=== PATIENT | female | born 1995 | race Caucasian/White ===

== ENCOUNTER 2017-05-04 14:50 | Inpatient (IN) | payer OTHER ==
[2017-05-04] VITALS (20 sets, daily range): BP systolic 127–175; BP diastolic 75–127
[~2017-05-04] VITALS: Ht 154.9 cm; Wt 62.3 kg
[2017-05-04 16:20] LABS: BASOPHIL (%) 0.3 % (0-1); EOSINOPHIL (%) 0.3 % (0-5); HEMATOCRIT 38.8 % (36.0-46.0); IMMATURE GRANULOCYTE (%) 0.4 % (0.0-0.7); LYMPHOCYTE (%) 10.1 % (15-42); LYMPHOCYTE COUNT 1.3 K/uL (1.0-2.8); MCH 32.4 PG (29.0-34.0); MCHC 36.1 G/DL (30.0-36.0); MCV 89.8 FL (83-99); MONOCYTE (%) 4.4 % (3-12); MONOCYTE COUNT 0.6 K/uL (0-0.8); NEUTROPHIL (%) 84.5 % (45-76); NEUTROPHIL COUNT 10.7 K/uL (1.8-6.4); PLATELET COUNT 181 K/uL (156-360); RBC DIS.WIDTH-CV 13.1 % (11.8-14.6); RBC DIS.WIDTH-SD 42.8 % (39-53); RED BLOOD COUNT 4.32 M/uL (3.80-5.20); WHITE BLOOD COUNT 12.7 K/uL (4.1-10.2)
[2017-05-04 16:42] LABS: ALBUMIN 3.6 G/DL (3.2-4.8); ALKALINE PHOSPHATASE 131 IU/L (3-129); ALT (GPT) 12 IU/L (3-49); AST (GOT) 17 IU/L (2-34); CHLORIDE 101 MEQ/L (99-109); CREATININE 0.5 MG/DL (0.6-1.3); GFR ESTIMATE (CALCULATED) > 59 mL/min/; GLUCOSE 80 mg/dL (70-99); SODIUM 136 MEQ/L (136-147); TOTAL PROTEIN 6.5 G/DL (6.4-8.3); UREA NITROGEN (BUN) 8 mg/dL (9-23)
[2017-05-04 17:20] LABS: AMPHETAMINE NEGATIVE (500 ng/mL); BARBITURATES NEGATIVE (200 ng/mL); BENZODIAZEPINES NEGATIVE (150 ng/mL); BUPRENORPHINE NEGATIVE (10 ng/mL); COCAINE NEGATIVE (150 ng/mL); METHADONE NEGATIVE (200 ng/mL); METHAMPHETAMINE NEGATIVE (500 ng/mL); OPIATES (MORPHINE) NEGATIVE (100 ng/mL); OXYCODONE NEGATIVE (100 ng/mL); PHENCYCLIDINE NEGATIVE (25 ng/mL); PROPOXYPHENE NEGATIVE (300 ng/mL); THC CANNABINOIDS NEGATIVE (50 ng/mL); TRICYCLIC ANTIDEPRESSANTS NEGATIVE (300 ng/mL)
[2017-05-04 17:27] LABS: UR CREATININE CONCENTRATION 97.1 MG/DL
[2017-05-05] VITALS (27 sets, daily range): BP systolic 101–139; BP diastolic 56–96
[2017-05-05] MEDS ORDERED: IBUPROFEN800 MG PO (01:16)
[2017-05-06 00:05] VITALS: BP 114/72
[2017-05-06 01:39] VITALS: BP 99/56
[2017-05-06 02:57] VITALS: BP 128/83
[2017-05-06 04:36] VITALS: BP 120/70
[2017-05-06 07:06] LABS: BASOPHIL (%) 0.3 % (0-1); EOSINOPHIL COUNT 0.1 K/uL (0-0.3); HEMATOCRIT 31.9 % (36.0-46.0); IMMATURE GRANULOCYTE (%) 0.4 % (0.0-0.7); LYMPHOCYTE (%) 15.6 % (15-42); LYMPHOCYTE COUNT 1.6 K/uL (1.0-2.8); MCH 32.2 PG (29.0-34.0); MCHC 34.2 G/DL (30.0-36.0); MONOCYTE (%) 6.3 % (3-12); MONOCYTE COUNT 0.7 K/uL (0-0.8); NEUTROPHIL (%) 76.4 % (45-76); PLATELET COUNT 147 K/uL (156-360); RBC DIS.WIDTH-CV 14.1 % (11.8-14.6); RBC DIS.WIDTH-SD 48.4 % (39-53); WHITE BLOOD COUNT 10.4 K/uL (4.1-10.2)
[2017-05-06 07:15] LABS: HEMOGLOBIN 10.9 G/DL (11.9-15.5); MCV 94.1 FL (83-99); RED BLOOD COUNT 3.39 M/uL (3.80-5.20)
[2017-05-06 07:24] LABS: ALBUMIN 2.7 G/DL (3.2-4.8); ALT (GPT) 13 IU/L (3-49); AST (GOT) 21 IU/L (2-34); CHLORIDE 107 MEQ/L (99-109); CREATININE 0.5 MG/DL (0.6-1.3); GFR ESTIMATE (CALCULATED) > 59 mL/min/; GLUCOSE 74 mg/dL (70-99); POTASSIUM 4.4 MEQ/L (3.7-5.4); SODIUM 138 MEQ/L (136-147); UREA NITROGEN (BUN) 7 mg/dL (9-23)
[2017-05-06 07:29] LABS: ALKALINE PHOSPHATASE 93 IU/L (3-129); TOTAL BILIRUBIN 0.6 MG/DL (0.0-1.0); TOTAL PROTEIN 4.8 G/DL (6.4-8.3)
[2017-05-06 07:35] VITALS: BP 136/95
[2017-05-06] MEDS ORDERED: LABETALOL HCL200 MG PO (09:49)
[2017-05-06 10:55] VITALS: BP 138/87
[2017-05-06] MEDS ORDERED: BREAST PUMP MC (14:38)
== END 2017-05-06 15:56 | disposition home or self-care (01) | DRG 775 ==
LOC: LDRP-OP 14:50 → 2WEST 14:52
PROVIDERS: Midwife; Obstetrics & Gynecology Gynecology
DX: O14.14 Severe pre-eclampsia complicating childbirth (principal); O99.354 Diseases of the nervous system complicating childbirth; O71.4 Obstetric high vaginal laceration alone; Z3A.39 39 weeks gestation of pregnancy; G43.909 Migraine, unspecified, not intractable, without status migrainosus; O13.4 Gestational [pregnancy-induced] hypertension without significant proteinuria, complicating childbirth; O12.04 Gestational edema, complicating childbirth; Z37.0 Single live birth; Q75.0 Craniosynostosis; Z90.49 Acquired absence of other specified parts of digestive tract; Z87.440 Personal history of urinary (tract) infections; M41.9 Scoliosis, unspecified; O26.893 Other specified pregnancy related conditions, third trimester; H50.9 Unspecified strabismus
CPT/HCPCS: 80053; 82570; 83735; 84156; 85025; G0378; J0330; J0595; J2405; J3475; J7120